=== PATIENT | male | born 1995 | race Caucasian/White ===

== ENCOUNTER → 2017-01-22 | Outpatient (CLI) | payer OTHER | END | disposition home or self-care (01) | LOC: GMAL 14:57 | PROVIDERS: ATTEND Family Medicine | DX: N34.1 Nonspecific urethritis (principal); N30.00 Acute cystitis without hematuria ==

== ENCOUNTER → 2017-11-12 | Outpatient (CLI) | payer OTHER ==
--- NOTE | 2017-11-12 18:08 | RAD ---
PROCEDURE: Lumbar Spine 5 Views Clinical History: LOW BACK PAIN Indication: Same as above Comparison: None . Technique: 5.0 views of the lumbar spine were done. Findings: There is no loss of vertebral body height. There is no evidence of spondylolisthesis or spondylolyses in the lumbosacral spine. There is minimal reduction in the intervertebral disc space height at L5/S1 level suggestive of underlying mild degenerative disc disease. 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 The bone mineralization is normal for patient's age. The thoracolumbar and the lumbosacral junction are intact. The visualized portions of the bilateral sacroiliac joints are unremarkable. The paravertebral soft tissues are radiographically unremarkable. The posterior elements are normal. There is no visualization of any radiopaque foreign bodies in the soft tissues. Impression: There is minimal reduction in the intervertebral disc space height at L5/S1 level suggestive of underlying mild degenerative disc disease. 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 Location of Interpretation: Teleradiology Electronically signed by: Selvin Lewis MD 11/12/2017 6:07 PM [facility] Workstation: [id number]
== END | disposition home or self-care (01) ==
LOC: RAD 17:16
PROVIDERS: ATTEND Nurse Practitioner Family
DX: M54.5 Low back pain (principal)